=== PATIENT | male | born 1955 | race Caucasian/White ===

== ENCOUNTER 2024-05-20 19:12 | Emergency (ER) | payer MEDICARE, BC, SELFPAY ==
--- NOTE | ~2024-05-20 | XR_ITS ---
HISTORY: Fall, pain COMPARISON: None TECHNIQUE: 3 views of the left shoulder were performed FINDINGS: No acute fracture. The glenohumeral and acromioclavicular joint space is maintained The visualized portion of the adjacent left lung is clear. The humeral head is well seated within the glenoid fossa. 3.5 mm osseous density projecting lateral to the humeral head suggesting calcific tendinosis of the b iceps tendon. IMPRESSION: No acute fracture or anterior dislocation. Reviewed, dictated and finalized at location A. SPECIFICATIONS CONTROL ASSISTANT
--- NOTE | ~2024-05-20 | XR_ITS ---
HISTORY: Fall, pain COMPARISON: None TECHNIQUE: 3 views of the left wrist were performed. FINDINGS: No acute fracture is identified. The carpal arcs are intact. Mild radiocarpal joint space narrowing with sclerosis of the distal radius is present. The remaining visualized joint spaces are otherwise preserved. Trace negative ulnar variance is detected. Bone mineralization is unremarkable. No significant soft tissue swelling is noted. No radiopaque foreign body is identified. IMPRESSION: No acute fracture or dislocation Reviewed, dictated and finalized at location A. LE FIBER WASHER
--- NOTE | ~2024-05-20 | XR_ITS ---
HISTORY: Fall, pain COMPARISON: None TECHNIQUE: AP and lateral views of the left forearm were performed FINDINGS: No acute fracture or dislocation. Surgical clips adjacent to the left elbow. Remaining soft tissues are unremarkable IMPRESSION: No acute fracture or dislocation Reviewed, dictated and finalized at location A. L ENGINEERING INTERN
--- NOTE | 2024-05-20 20:01 | PC.NURSE ---
Called [facility] to ask them to bring pt to triage for vitals when they bring him back to the ED @1932
[2024-05-20 20:03] VITALS: BP 123/52; PULSE 68; RESP 16; TEMP 36.6; O2SAT 100
--- NOTE | 2024-05-20 21:09 | ED.FALL ---
HPI - Fall General Chief Complaint: Fall Stated Complaint: Fall, LFA Pain, multiple falls over last week Time Seen by Provider: 05/20/24 21:09 Source: patient Mode of arrival: ambulatory Limitations: no limitations History of Present Illness HPI Narrative: 69 years old white male came to the ED by ambulance from home with his is telling me that he been having multiple falls over the last 3-4 months on average 2 to 3 times a week. History of prior concern. He denies any fever, chills, nausea, vomiting. last fall was yesterday and today prior to arrival. Complaining of left forearm pain. He denies head injury, neck pain, back pain, or any other pain. Related Data Allergies Allergy/AdvReac Type Severity Reaction Status Date / Time No Known Allergies Allergy Verified 05/20/24 19:21 Review of Systems Review of Systems: All systems reviewed & are unremarkable except as noted in HPI and below Exam Narrative: General appearance: Well-developed, well-nourished Skin: Normal color Head: Normocephalic, nontraumatic Eyes: Clear conjunctiva ENT: Oropharynx normal, ears normal, Abrasion of the nose anteriorly Neck: Supple, nontender Chest and respiratory: Airway patent, no respiratory distress, no accessory muscle use Heart: Regular rate/rhythm Abdomen: Soft, nontender, no organomegaly, quiet bowel sounds Vascular: Normal peripheral pulses, normal capillary refill. Musculoskeletal: Normal range of motion, nontender back, and abrasion of the knees anteriorly Neurologic: Alert and oriented ?3, CHAINSTITCH SEAT JOINER is normal as tested, no gross motor deficit Course Vital Signs Vital signs: Vital Signs Temperature 36.6 C 05/20/24 20:03 Pulse Rate 68 05/20/24 20:03 Respiratory Rate 16 05/20/24 20:03 Blood Pressure 123/52 L 05/20/24 20:03 Pulse Oximetry 100 05/20/24 20:03 Temperature 36.6 C 05/20/24 20:03 Pulse Rate 68 05/20/24 20:03 Respiratory Rate 16 05/20/24 20:03 Blood Pressure 123/52 L 05/20/24 20:03 Pulse Oximetry 100 05/20/24 20:03 MDM - Fall MDM Narrative Medical decision making narrative: patient presents with multiple falls 2 to 3 times a week over the last 3-4 months. Vital signs Showing blood pressure 123/52 Physical examination showing abrasion of the nose and knees anteriorly, diffuse tenderness of the left forearm, Differential diagnosis contusion, fracture, electrolyte imbalance, urinary tract infection, dehydration the patient and his is telling me that he had recent blood workup 2 weeks ago and urinalysis which showed nothing. He declined any labs or urinalysis at this time. The patient and his declined the possibility of retirement placement or rehab. She is telling me that she have 3 boys will be able to take care of him. . X-ray of the left wrist, left forearm and left shoulder no acute abnormalities. Patient was advised to use a walker and workers compensation claims assistant any time standing or walking. Differential Diagnosis Differential diagnosis: Likely other ( As above) Imaging Data Radiologist's impression: Impressions Wrist X-Ray 05/20/24 20:25 IMPRESSION: No acute fracture or dislocation Shoulder X-Ray 05/20/24 20:26 IMPRESSION: No acute fracture or anterior dislocation. Forearm X-Ray 05/20/24 20:29 IMPRESSION: No acute fracture or dislocation Critical Care Time Critical Care Time Critical Care Time: No Discharge Plan Discharge Clinical Impression: Multiple falls, Parkinson disease Patient Disposition: Home, Self-Care Condition: Guarded Prognosis Instructions: Contusion in Adults (ED), Abrasion (ED), Fall Prevention (ED) Additional Instructions: Return if symptoms are worsening , call your family physician for appointment, take Tylenol as as needed for aches and pain, continue home medications., use workers compensation claims assistant and/or a walker with any standing or walking Follow-up/Referrals: PHYSICIAN NOT ON STAFF,NONSTAFF [Non-Staff] -
== END 2024-05-20 21:45 | disposition home or self-care (01) ==
PROVIDERS: Emergency Provider Emergency Medicine
DX: M79.632 Pain in left forearm (principal); W19.XXXA Unspecified fall, initial encounter; Z91.81 History of falling; G20.A1 Parkinson's disease without dyskinesia, without mention of fluctuations
CPT/HCPCS: 73030; 73090; 73110; 99284